=== PATIENT | male | born 1960 | race African-American/Black ===

== ENCOUNTER 2016-08-17 19:53 | Emergency (ER) | payer OTHER ==
--- NOTE | ~2016-08-17 | CT2 ---
[facility] A Service of [facility] RADIOLOGY TEXT RESULTS PATIENT: ANCA CARRILLO LOCATION: [facility] : 58 UNIT #: [id number] AGE: [address]: PADILLA GUEVARA APRN SEX: M ORDER DR: [id number] [facility] [address] [place], [place] [address] [id number] MR#: [id number] Acc #: [id number] NAME: ANCA CARRILLO : 1960 SEX: M STUDY DATE/TIME: 08/18/2016 0:14 UNIT: MIRIAN ROOM: STUDY DESCRIPTION: CT Abd and Pelv W Cont Attending Physician: Padilla Guevara Aprn Ordering Physician: Padilla Guevara Aprn Primary Care Physician: Primary Care Physician No MEDICAL IMAGING REPORT This report is preliminary unless electronic signature is present EXAM CT abdomen and pelvis with contrast INDICATION Left-sided abdomen pain starting 3 days ago with bloating and vomiting. COMPARISON 01/03/2016. TECHNIQUE The patient was given 100 mL of Isovue 370 and axial 5 mm images were obtained through the abdomen and pelvis. Oral contrast was also administered. Sagittal and coronal reconstructions were generated. This CT examination was performed with one or more of the following radiation dose reduction techniques: automatic exposure control, adjustment of mA and/or kV according to patient size, and iterative reconstruction. FINDINGS The lung bases are clear. There is diffuse fatty change throughout the liver which is slightly enlarged. The gallbladder has been removed. The spleen, pancreas, adrenal glands and kidneys are normal in appearance. The aorta is normal in size and there is no adenopathy. The bowel is normal except for left colon diverticula. The appendix is not visible. The bladder and prostate gland are normal. The bones are unremarkable. IMPRESSION 1. Hepatomegaly with diffuse fatty change throughout the liver. 2. Prior cholecystectomy. 3. The appendix is not visible but I do not see any evidence of appendicitis. 4. Left colon diverticulosis. [facility] A Service of [facility] RADIOLOGY TEXT RESULTS PATIENT: ANCA CARRILLO LOCATION: [facility] : 58 UNIT #: [id number] AGE: [address]: PADILLA GUEVARA APRN SEX: M ORDER DR: Dictated by... Kory Rivero M.D. THIS IS AN ELECTRONICALLY VERIFIED REPORT Kory Rivero M.D. at 08/18/2016 1:35 PM ANDRES/abbie TD: 08/18/2016 12:49 JOB #: [id number] MEDICAL IMAGING REPORT Page 1 of 1 COPY
[~2016-08-17 19:53] MED LIST: B12 PO; CLOPIDOGREL75 MG PO; COATED ASPIRIN325 M1 PO; COZAAR25 MG PO; IMDUR-ER60 M3 DOB; ISOSORBIDE MONONITRATE 60 MG PO; LANTUS100 U/ML SQ; LASIX20 MG PO; LIPITOR40 MG PO; METOPROLOL TART25 MG PO; NEURONTIN100 MG PO; NOVOLOG INSULIN SUBQ; NOVOLOG100 U/M1 SQ; PERCOCET5/325 PO; PIPERACIL-TA3.375 GM IV; PRILOSEC PO; SINGULAIR PO
[2016-08-17 21:08] LABS: BASOPHIL# 0.1 X10e3 (0-0.3); BASOPHIL% 0.6 % (0-2.5); EOSINOPHIL# 0.2 X10e3 (0-0.7); EOSINOPHIL% 1.7 % (0.0-7.0); HEMATOCRIT 40.6 % (38.0-50.0); HEMOGLOBIN 13.5 gm/dL (13.0-16.0); LYMPHOCYTE# 1.7 X10e3 (1.0-3.5); LYMPHOCYTE% 16.7 % (17.0-45.0); MEAN CORPUSCULAR HGB CONC 33.4 g/dL (30-36); MEAN PLATELET VOLUME 10.9 FL (6.5-11.5); MONOCYTE# 0.7 X10e3 (0-1.0); MONOCYTE% 7.3 % (3.0-12.0); NEUTROPHIL# 7.4 X10e3 (1.5-7.1); NEUTROPHIL% 73.7 % (40-75); PLATELET COUNT 156 X10e3 (140-420); RED BLOOD COUNT 4.51 X10e (3.90-5.60); RED CELL DISTRIBUTION WIDTH 15.3 % (11.0-15.5)
[2016-08-17 21:13] LABS: DIFF IND NO
[2016-08-17 21:41] LABS: ALBUMIN SERUM 4.2 g/dL (3.5-5.0); BILIRUBIN, DIRECT 0.1 mg/dL (0.0-0.2); BILIRUBIN,INDIRECT 0.5 mg/dL (0.0-0.9); BILIRUBIN,TOTAL 0.6 mg/dL (0.2-2.0); BUN/CREATININE RATIO 10.71; CALCIUM SERUM 8.6 mg/dL (8.4-10.2); CREATININE SERUM 1.4 mg/dL (0.6-1.4); GLOM FILT RATE Estimated 64.2 mL/min (>60)
[2016-08-17 22:43] LABS: URINE SOURCE CLEAN CATCH
[2016-08-17 22:46] LABS: URINE APPEARANCE CLEAR; URINE BILIRUBIN NEG (NEG); URINE BLOOD TRACE (NEG); URINE COLOR DK YELLOW; URINE GLUCOSE >1000 MG/DL (NEG); URINE KETONE 1+ (NEG); URINE LEUKOCYTE ESTERASE NEG (NEG); URINE NITRATE NEG (NEG); URINE PH 5.5 (5-8); URINE PROTEIN 1+ (NEG); URINE SPECIFIC GRAVITY 1.025 (1.003-1.035)
[2016-08-17 22:52] LABS: URINE BACTERIA AUWI NEG (NEGATIVE); URINE SQUAMOUS EPITHELIAL CELL NONE SEEN /[HPF]; UWBCS1 AUWI 0-2 (0-5)
[2016-08-17 22:53] LABS: CULTURE INDICATED? NO
== END 2016-08-18 03:15 | disposition home or self-care (01) ==
LOC: CED 19:53
DX: R10.32 Left lower quadrant pain (principal); R11.2 Nausea with vomiting, unspecified; E11.9 Type 2 diabetes mellitus without complications; I10 Essential (primary) hypertension; E78.5 Hyperlipidemia, unspecified; G40.909 Epilepsy, unspecified, not intractable, without status epilepticus; Z98.890 Other specified postprocedural states; Z79.82 Long term (current) use of aspirin; Z79.4 Long term (current) use of insulin; Z79.899 Other long term (current) drug therapy
CPT/HCPCS: 36415; 74177; 80048; 80076; 81003; 83690; 85025; 96361; 96374; 96375; 99284; J2270; J2405; J2765; Q9967